=== PATIENT | male | born 1975 | race Caucasian/White ===

== ENCOUNTER → 2021-08-21 | Outpatient (CLI) | payer BC ==
--- NOTE | 2021-08-21 09:19 | Diagnostic Imaging Report ---
INDICATION: Pain at the base of the right thumb. FINDINGS: Three views of the right thumb show no fracture, dislocation, or other acute bony abnormality. No significant degenerative changes are seen. No erosions are evident. IMPRESSION: No abnormality is seen. Dictated by: Dictated on workstation # [id number]
== END ==
LOC: RAD FS 08:46
PROVIDERS: ATTEND Nurse Practitioner
DX: M79.644 Pain in right finger(s) (principal)
CPT/HCPCS: 73140